=== PATIENT | male | born 1940 | race Caucasian/White ===

== ENCOUNTER 2019-02-12 11:54 | Emergency (ER) | payer MEDICARE, MEDICAID ==
[2019-02-12] MEDS ORDERED: Adacel (T-DAP) 0.5 ML SYRINGE ONE (12:15)
--- NOTE | 2019-02-12 12:17 | RAD ---
Exam: XR Finger(s) Rt Min 2 View HISTORY: Patient reports cutting finger while using a drill press. COMPARISON: None FINDINGS: There is amputation of the distal right index finger at the level of the proximal aspect of the dista l phalanx. Overlying soft tissue irregularity is present. No additional fracture or dislocation is seen. 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
[2019-02-12 12:29] LABS: #Basophils 0.1 thou/uL (0.0-0.2); #Eosinphils 0.2 thou/uL (0.0-0.7); #Lymphocytes 1.2 thou/uL (1.20-3.40); #Monocytes 0.5 thou/uL (0.11-0.59); #Neutrophils 2.9 thou/uL (1.40-6.50); %Basophils 1.2 % (0.0-1.0); %Eosinophils 4.5 % (0.0-10.0); %Lymphocytes 24.9 % (21.0-51.0); %Monocytes 10.2 % (0.0-10.0); %Neutrophils 59.2 % (42.0-75.0); Hemoglobin 14.9 g/dL (14.0-18.0); Mean Corpuscular HGB CONC 32.4 g/dL (32.0-36.0); Mean Corpuscular Hemoglobin 29.6 pg (27.0-31.0); Mean Corpuscular Volume 91.2 fL (78.0-98.0); Mean Platelet Volume 7.6 fL (7.4-10.4); Platelet Count 155 thou/uL (130-400); RBC Distribution Width 12.4 % (11.5-14.5); Red Blood Cell (RBC) Count 5.03 mill/uL (4.70-6.10); White Blood Cell (WBC) Count 4.9 thou/uL (4.8-10.8)
[2019-02-12] MEDS ORDERED: CEFAZOLIN 1 GM VIAL ONE ×2 (12:32)
[2019-02-12] MEDS ORDERED: Sodium Chloride 0.9% 100 ML ONE (12:32)
[2019-02-12] MEDS ORDERED: Ondansetron PF 4 MG/2 ML Vial ONE (12:32)
[2019-02-12 12:46] LABS: Anion Gap 15 mmol/L (10-20); BUN (Urea Nitrogen) 15 mg/dL (8.4-25.7); Calc. Creatinine Clearance 0 mL/min (70-130); Calcium 9.5 mg/dL (7.8-10.44); Carbon Dioxide 24 mmol/L (23-31); Chloride 107 mmol/L (98-107); Estimated GFR-MDRD 65; Glucose 92 mg/dL (83-110); Potassium 3.9 mmol/L (3.5-5.1); Sodium 142 mmol/L (136-145)
[2019-02-12] MEDS ORDERED: Sodium Chloride 0.9% 1,000 ML ONE (12:47)
== END 2019-02-12 13:22 | disposition short-term general hospital (02) ==
LOC: NAV ERS 11:54
DX: S68.120A Partial traumatic metacarpophalangeal amputation of right index finger, initial encounter (principal); I10 Essential (primary) hypertension; F17.220 Nicotine dependence, chewing tobacco, uncomplicated; Z79.899 Other long term (current) drug therapy; W23.0XXA Caught, crushed, jammed, or pinched between moving objects, initial encounter
CPT/HCPCS: 80048; 85025; 90471; 90715; 93005; 96365; 96375; J0690; J2270; J2405; J3490; J7050

== ENCOUNTER 2020-07-15 10:47 | Emergency (ER) | payer MEDICARE, MEDICAID ==
[2020-07-15] MEDS ORDERED: Sodium Chloride 0.9% 500 ML ONE (11:19)
[2020-07-15 11:40] LABS: #Basophils 0.1 thou/uL (0.0-0.2); #Eosinphils 0.1 thou/uL (0.0-0.7); #Lymphocytes 1.1 thou/uL (1.20-3.40); #Monocytes 0.6 thou/uL (0.11-0.59); #Neutrophils 6.4 thou/uL (1.40-6.50); %Basophils 1.1 % (0.0-1.0); %Eosinophils 1.2 % (0.0-10.0); %Lymphocytes 13.6 % (21.0-51.0); %Monocytes 7.3 % (0.0-10.0); %Neutrophils 76.8 % (42.0-75.0); Mean Corpuscular Hemoglobin 30.6 pg (27.0-31.0); Mean Corpuscular Volume 89.8 fL (78.0-98.0); Mean Platelet Volume 8.9 fL (7.4-10.4); Platelet Count 155 thou/uL (130-400); RBC Distribution Width 11.7 % (11.5-14.5); Red Blood Cell (RBC) Count 5.23 mill/uL (4.70-6.10); White Blood Cell (WBC) Count 8.4 thou/uL (4.8-10.8)
[2020-07-15 11:50] LABS: ALT (SGPT) 21 U/L (8-55); AST (SGOT) 21 U/L (5-34); Albumin 4.3 g/dL (3.4-4.8); Alkaline Phosphatase 128 U/L (40-110); Anion Gap 17 mmol/L (10-20); BUN (Urea Nitrogen) 16 mg/dL (8.4-25.7); Bilirubin, Total 1.5 mg/dL (0.2-1.2); Calc. Creatinine Clearance 0 mL/min (70-130); Carbon Dioxide 24 mmol/L (23-31); Chloride 109 mmol/L (98-107); Globulin 2.5 g/dL (2.4-3.5); Glucose 101 mg/dL (83-110); Protein, Total 6.8 g/dL (5.8-8.1); Sodium 146 mmol/L (136-145)
--- NOTE | 2020-07-15 11:56 | RAD ---
XR Chest Pa Lat STANDARD History: Trouble swallowing Comparison: None. Findings: Lungs are clear. Prominent nipple shadows. No confluent airspace consolidation, pneumothora x or effusion. No acute osseous abnormality. Dual-lead pacer electrode tips project over the right atrial appendage and right ventricle. Impression: No acute intrathoracic abnormality.
== END 2020-07-15 13:04 | disposition short-term general hospital (02) ==
LOC: NAV ERS 10:47
DX: K22.2 Esophageal obstruction (principal); E78.00 Pure hypercholesterolemia, unspecified; K21.9 Gastro-esophageal reflux disease without esophagitis; F17.220 Nicotine dependence, chewing tobacco, uncomplicated; I25.10 Atherosclerotic heart disease of native coronary artery without angina pectoris
CPT/HCPCS: 71046; 80053; 83880; 84484; 85025; 93005; 94760; J7030

== ENCOUNTER 2022-01-22 09:06 | Emergency (ER) | payer MEDICAID, OTHER ==
[2022-01-22] MEDS ORDERED: Fluorescein Opthalmic Strip ONE (09:32)
[2022-01-22] MEDS ORDERED: Tetracaine 0.5% PF 4 ML BOT ONE (09:32)
[2022-01-22] MEDS ORDERED: Boostrix 0.5 ML (Tdap) VIAL ONE (10:14)
== END 2022-01-22 10:10 | disposition home or self-care (01) ==
LOC: NAV ERS 09:06
DX: S05.01XA Injury of conjunctiva and corneal abrasion without foreign body, right eye, initial encounter (principal); E78.00 Pure hypercholesterolemia, unspecified; K21.9 Gastro-esophageal reflux disease without esophagitis; F17.220 Nicotine dependence, chewing tobacco, uncomplicated; Z79.899 Other long term (current) drug therapy; X58.XXXA Exposure to other specified factors, initial encounter
CPT/HCPCS: 90471; 90715

== ENCOUNTER 2022-12-06 20:29 | Emergency (ER) | payer OTHER, MEDICAID ==
[~2022-12-06 20:29] MED LIST: Iopamidol 370 76% 100 ML VIAL ONE
[2022-12-06 20:56] LABS: #Basophils 0.1 thou/uL (0.0-0.2); #Eosinphils 0.2 thou/uL (0.0-0.7); #Lymphocytes 1.1 thou/uL (1.20-3.40); #Monocytes 0.4 thou/uL (0.11-0.59); #Neutrophils 3.5 thou/uL (1.40-6.50); %Basophils 1.1 % (0.0-1.0); %Eosinophils 4.7 % (0.0-10.0); %Lymphocytes 20.1 % (21.0-51.0); %Neutrophils 66.1 % (42.0-75.0); Hemoglobin 14.2 g/dL (14.0-18.0); Mean Corpuscular HGB CONC 33.3 g/dL (32.0-36.0); Mean Corpuscular Hemoglobin 30.4 pg (27.0-31.0); Mean Corpuscular Volume 91.3 fl (78.0-98.0); Platelet Count 130 10x3/uL (130-400); RBC Distribution Width 12.2 % (11.5-14.5); Red Blood Cell (RBC) Count 4.66 mill/uL (4.70-6.10); White Blood Cell (WBC) Count 5.3 10x3/uL (4.8-10.8)
[2022-12-06 21:14] LABS: ALT (SGPT) 55 U/L (8-55); AST (SGOT) 108 U/L (5-34); Albumin 3.8 g/dL (3.4-4.8); Alkaline Phosphatase 137 U/L (40-110); Anion Gap 15 mmol/L (10-20); BUN (Urea Nitrogen) 15 mg/dL (8.4-25.7); Bilirubin, Total 0.8 mg/dL (0.2-1.2); Calc. Creatinine Clearance 0 mL/min (70-130); Calcium 8.8 mg/dL (7.8-10.44); Carbon Dioxide 22 mmol/L (23-31); Chloride 111 mmol/L (98-107); Estimated GFR 57; Globulin 2.5 g/dL (2.4-3.5); Glucose 105 mg/dL (83-110); Lipase 45 U/L (8-78); Potassium 3.7 mmol/L (3.5-5.1); Protein, Total 6.3 g/dL (5.8-8.1); Sodium 144 mmol/L (136-145)
== END 2022-12-06 22:55 | disposition home or self-care (01) ==
LOC: NAV ERS 20:29
DX: K80.20 Calculus of gallbladder without cholecystitis without obstruction (principal); I25.10 Atherosclerotic heart disease of native coronary artery without angina pectoris; E78.00 Pure hypercholesterolemia, unspecified; K21.9 Gastro-esophageal reflux disease without esophagitis; F17.220 Nicotine dependence, chewing tobacco, uncomplicated
CPT/HCPCS: 74177; 80053; 83690; 84484; 85025; 93005; 94760; Q9967

== ENCOUNTER 2023-12-10 10:36 | Emergency (ER) | payer OTHER, MEDICAID ==
[2023-12-10] MEDS ORDERED: Doxycycline 100 MG CAP ONE (11:21)
[2023-12-10] MEDS ORDERED: Ketorolac Tromethamine 30 MG (1 mL) VIAL ONE (11:21)
== END 2023-12-10 11:47 | disposition home or self-care (01) ==
LOC: NAV ERS 10:36
DX: H66.92 Otitis media, unspecified, left ear (principal); I25.10 Atherosclerotic heart disease of native coronary artery without angina pectoris; K21.9 Gastro-esophageal reflux disease without esophagitis; E78.00 Pure hypercholesterolemia, unspecified; F17.220 Nicotine dependence, chewing tobacco, uncomplicated; Z79.899 Other long term (current) drug therapy
CPT/HCPCS: 96372; J1885